=== PATIENT | male | born 1960 | race Caucasian/White ===

== ENCOUNTER 2017-07-16 22:22 | Emergency (ER) | payer MEDICAID ==
[2017-07-16] MEDS: IPRATROPIUM (NEB) 0.5 MG/2.5 ML AMP INH (23:17)
[2017-07-16] MEDS: LEVALBUTEROL (NEB) 1.25 MG/0.5 ML AMP INH (23:17)
[2017-07-16] MEDS: SOD CHLORIDE 0.9% 1,000 ML IV (23:21)
[2017-07-16] MEDS: METHYLPREDNISOLONE 125 MG INJ IV (23:22)
[2017-07-16 23:53] LABS: ADD MAN DIFF? NO
[2017-07-16 23:57] LABS: WHITE BLOOD COUNT 6.7 10^3/ul (4.8-10.8)
[2017-07-16 23:57] LABS: BASOPHIL # 0.1 10^3/ul (0.0-0.1); EOSINOPHILS # 0.8 10^3/ul (0.0-0.5); HEMATOCRIT 43.1 % (42.0-52.0); HEMOGLOBIN 14.7 g/dl (14.0-18.0); LYMPHOCYTES # 1.7 10^3/ul (0.8-2.9); LYMPHOCYTES % 24.9 % (15.0-51.0); MEAN CORPUSCULAR HEMOGLOBIN 28.6 pg (29.0-33.0); MEAN CORPUSCULAR HGB CONC 34.1 g/dl (32.0-37.0); MEAN CORPUSCULAR VOLUME 83.9 fl (82.0-101.0); MEAN PLATELET VOLUME 9.8 fl (7.4-10.4); MONOCYTE # 0.5 10^3/ul (0.3-0.9); MONOCYTES % 6.7 % (0.0-11.0); NEUTROPHIL # 3.7 10^3/ul (1.6-7.5); NEUTROPHILS % 55.3 % (39.0-77.0); PLATELET COUNT 278 10^3/UL (140-415); RED BLOOD COUNT 5.14 10^6/ul (4.70-6.10); RED CELL DISTRIBUTION WIDTH 12.5 % (11.5-14.5)
[2017-07-17 00:03] LABS: ANION GAP 17 (8-16); BLOOD UREA NITROGEN 18 mg/dl (7-20); CALCIUM 9.9 mg/dl (8.4-10.2); CARBON DIOXIDE 26 mmol/L (21-31); CHLORIDE 103 mmol/L (97-110); CREATININE 0.95 mg/dl (0.61-1.24); GLUCOSE 101 mg/dl (70-220); POTASSIUM 3.8 mmol/L (3.5-5.1); SODIUM 142 mmol/L (135-144)
[2017-07-17] MEDS: LEVOFLOXACIN 750 MG TABLET PO (01:34)
== END 2017-07-17 01:37 | disposition home or self-care (01) ==
LOC: E/R 07-17 01:37
DX: J18.9 Pneumonia, unspecified organism (principal); Z79.82 Long term (current) use of aspirin
CPT/HCPCS: 71045; 80048; 85025; 93005; 94644; 96374; 99284-25

== ENCOUNTER 2017-12-21 08:24 | Emergency (ER) | payer SELFPAY, MEDICAID | END 2017-12-21 10:12 | disposition home or self-care (01) | LOC: FTE 08:24 | DX: R05 Cough (principal) | CPT/HCPCS: 71045; 99283-25 ==

== ENCOUNTER 2018-03-05 16:36 | Emergency (ER) | payer SELFPAY ==
[2018-03-05] MEDS: LIDOCAINE 1% (MDV) 10 ML INJ INJ (17:22)
[2018-03-05] MEDS: STERILE WATER 1L IRRIG BTL IRR (17:22)
[2018-03-05] MEDS: ACETAMINOPHEN 325 MG TAB PO (17:55)
[2018-03-05] MEDS ORDERED: LIDOCAINE 1% (MDV) 20 ML INJ INJ (17:58)
[2018-03-05] MEDS: LIDOCAINE 1% (MDV) 20 ML INJ SC (18:00)
== END 2018-03-05 19:41 | disposition home or self-care (01) ==
LOC: FTE 16:36
DX: S61.012A Laceration without foreign body of left thumb without damage to nail, initial encounter (principal); W26.8XXA Contact with other sharp object(s), not elsewhere classified, initial encounter; Y92.9 Unspecified place or not applicable
CPT/HCPCS: 12002; 99282-25

== ENCOUNTER 2018-03-08 11:29 | Emergency (ER) | payer SELFPAY | END 2018-03-08 12:28 | disposition home or self-care (01) | LOC: FTE 11:29 | DX: Z48.01 Encounter for change or removal of surgical wound dressing (principal) | CPT/HCPCS: 99281 ==